=== PATIENT | female | born 1980 | race American Indian/Alaskan Native ===

== ENCOUNTER 2017-09-28 19:21 | Emergency (ER) | payer MEDICAID ==
[2017-09-28 19:35] VITALS: BP 144/78
--- NOTE | 2017-09-28 20:04 | EDM.PDOC ---
ED HPI GENERAL MEDICAL PROBLEM - General Chief Complaint: ENT Problem Stated Complaint: TOOTH PAIN/L CHECK SWELLING Time Seen by Provider: 09/28/17 20:00 Source of Information: Reports: Patient History Limitations: Reports: No Limitations - History of Present Illness INITIAL COMMENTS - FREE TEXT/NARRATIVE: This patient had a dental extraction recently. For the past few days she's been having a little bit of discomfort in the area was one of the upper left molars. She thinks maybe a fragment of tooth may still begin there. She called the dentist and was told she needed to be on antibiotics before she was seen in clinic. The pain was worse last night and then even still worse this morning. 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 ED EXAM, ENT - Physical Exam Exam: See Below Exam Limited By: No Limitations General Appearance: Alert, WD/WN, Mild Distress Mouth/Throat: Other (There is evidence of a recent extraction of a left upper molar. No obvious abscess or drainage. The area is moderately tender) Course - Vital Signs Last Recorded V/S: Last Vital Signs Temp 36.4 C 09/28/17 19:47 Pulse 71 09/28/17 19:47 Resp 16 09/28/17 19:47 BP 144/78 H 09/28/17 19:47 Pulse Ox 100 09/28/17 19:47 Departure - Departure Time of Disposition: 20:02 Disposition: Home, Self-Care 01 Condition: Fair Clinical Impression: Pain, dental - Discharge Information Referrals: PCP,None [Primary Care Provider] - Additional Instructions: Take clindamycin 150 mg 2 capsules 3 times a day. For pain take Narco 5/325 (# 18 tablets) one or 2 every 4 hours as needed. This medication can cause sedation and impair driving. It is an opioid and can be addictive if abused.
== END 2017-09-28 20:15 | disposition home or self-care (01) ==
LOC: JP.ED 19:21
DX: K08.89 Other specified disorders of teeth and supporting structures (principal); Z88.1 Allergy status to other antibiotic agents; Z88.2 Allergy status to sulfonamides; Z88.8 Allergy status to other drugs, medicaments and biological substances; F17.210 Nicotine dependence, cigarettes, uncomplicated
CPT/HCPCS: 99283

== ENCOUNTER 2018-02-24 18:34 | Emergency (ER) | payer MEDICAID ==
[2018-02-24 19:09] VITALS: BP 135/73
--- NOTE | 2018-02-24 19:43 | EDM.PDOC ---
ED HPI GENERAL MEDICAL PROBLEM - General Chief Complaint: ENT Problem Stated Complaint: SORE THROAT, EARS HURT, RASH ALL OVER Time Seen by Provider: 02/24/18 19:30 Source of Information: Reports: Patient, Family History Limitations: Reports: No Limitations - History of Present Illness INITIAL COMMENTS - FREE TEXT/NARRATIVE: Lorie presents with complaints of sore throat, fever, chills for 10 to 14 days. She also complains of new rash to abdomen and back since this morning. She has tried use of OTC medications to help her symptoms without relief. 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 Denies: Malaise, Weakness HEENT: Reports: Ear Pain, Throat Pain. Denies: Dental Pain, Eye Discharge, Eye Pain, Hearing Loss, Nosebleed, Nose Pain, Rhinitis, Sinus Problem, Throat Swelling Respiratory: Reports: No Symptoms Cardiovascular: Reports: No Symptoms Endocrine: Reports: No Symptoms Musculoskeletal: Reports: No Symptoms Skin: Reports: Other (Rash to abdomen and back) Neurological: Reports: No Symptoms Psychiatric: Reports: No Symptoms Hematologic/Lymphatic: Reports: No Symptoms Immunologic: Reports: No Symptoms ED EXAM, ENT - Physical Exam Exam: See Below Text/Narrative:: Lorie is an alert and oriented 37 year old female with complaints of sore throat, fever, chills for 10 to 14 days. She also complains of new rash to abdomen and back since this morning. She has tried use of OTC medications to help her symptoms without relief. Exam Limited By: No Limitations General Appearance: Alert, WD/WN, Mild Distress Eye Exam: Bilateral Eye: EOMI, Normal Inspection, PERRL Ears: Normal External Exam, Normal Canal, Hearing Grossly Normal, Other ( Bilateral TMS metz and dull without erythema or drainage. ) Nose: Normal Inspection, Normal Mucousa, No Blood Mouth/Throat: Normal Gums, Normal Lips, Normal Teeth, Pharyngeal Erythema, Throat Pain, Tonsillar Erythema, Tonsillar Exudates, Tonsillar Swelling. No: Dental Abcess, Dental Pain, Dental Tenderness, Gum Swelling, Throat Swelling, Tongue Swelling, Trismus, Uvular Deviation, Uvular Edema Head: Atraumatic, Normocephalic Neck: Normal Inspection, Supple, Full Range of Motion. No: Lymphadenopathy (R) , Lymphadenopathy (L) Respiratory/Chest: No Respiratory Distress, Lungs Clear, Normal Breath Sounds, No Accessory Muscle Use, Chest Non-Tender Cardiovascular: Normal Peripheral Pulses, Regular Rate, Rhythm, No Edema, No Gallop, No JVD, No Murmur, No Rub GI/Abdominal: Normal Bowel Sounds, Soft, Non-Tender, No Organomegaly, No Distention Back: Full Range of Motion. No: CVA Tenderness (R), CVA Tenderness (L) Extremities: Normal Inspection, Normal Range of Motion, Non-Tender, No Pedal Edema, Normal Capillary Refill Neurological: Alert, Oriented, CN II-XII Intact, Normal Cognition, Normal Gait, Normal Reflexes, No Motor/Sensory Deficits Psychiatric: Normal Affect, Normal Mood Skin: Rash, Other (sandpaper-like rash to chest back and bilateral upper extremities. ) Lymphatic: No Adenopathy Course - Vital Signs Last Recorded V/S: Last Vital Signs Temp 37.0 C 02/24/18 19:06 Pulse 79 02/24/18 19:06 Resp 16 02/24/18 19:06 BP 135/73 02/24/18 19:06 Pulse Ox 99 02/24/18 19:06 Departure - Departure Time of Disposition: 19:48 Disposition: Home, Self-Care 01 Condition: Good Clinical Impression: Strep throat/scarlet fever, [place] - Discharge Information Instructions: Strep Throat, [id number] Referrals: PCP,None [Primary Care Provider] - Forms: ED Department Discharge Additional Instructions: You have been evaluated and treated for strep throat with scarletina rash. Keep yourself hydrated with plenty of fluids. Take azithromycin 500mg by mouth today then 250mg by mouth daily for 4 days. Take ibuprofen 800mg by mouth three times a day as needed for pain. Take acetaminophen 1000mg by mouth three times a day as needed for pain. Return for worsening, SOB, difficulty breathing or any other concerns. - Assessment/Plan Assessment:: Strep throat/scarlet fever scarletina rash Plan: Patient evaluated and treated for strep throat with scarletina rash. Keep hydrated with plenty of fluids. Take azithromycin 500mg by mouth today then 250mg by mouth daily for 4 days ( PCN allergy). Take ibuprofen 800mg by mouth three times a day as needed for pain. Take acetaminophen 1000mg by mouth three times a day as needed for pain. Return for worsening, SOB, difficulty breathing or any other concerns.
== END 2018-02-24 20:00 | disposition home or self-care (01) ==
LOC: JP.ED 18:34
DX: A38.9 Scarlet fever, uncomplicated (principal); J02.0 Streptococcal pharyngitis; Z88.1 Allergy status to other antibiotic agents; Z88.2 Allergy status to sulfonamides
CPT/HCPCS: 99283